=== PATIENT | male | born 1960 | race Caucasian/White ===

== ENCOUNTER 2022-03-19 16:05 | Emergency (ER) | payer SELFPAY ==
[2022-03-19 17:54] LABS: ESTIMATED GFR 69 mL/min (>60)
== END 2022-03-20 07:45 | disposition home or self-care (01) ==
LOC: JP.ED 16:05
DX: F10.920 Alcohol use, unspecified with intoxication, uncomplicated (principal); Y90.8 Blood alcohol level of 240 mg/100 ml or more
CPT/HCPCS: 36415; 70450; 80053; 80305-QW; 80307; 83605; 85025; 99284

== ENCOUNTER 2024-09-22 23:31 | Emergency (ER) | payer SELFPAY | END 2024-09-23 07:04 | disposition other institution (70) | LOC: JP.ED 23:31 | DX: S72.001A Fracture of unspecified part of neck of right femur, initial encounter for closed fracture (principal); Z79.899 Other long term (current) drug therapy; Z86.16 Personal history of COVID-19; W18.39XA Other fall on same level, initial encounter; Y93.89 Activity, other specified | CPT/HCPCS: 73502-26-RT; 73502-RT; 93005; 93010; 96374; 99283; 99285-25; J1171 ==

== ENCOUNTER 2025-03-01 01:39 | Inpatient (IN) | payer SELFPAY ==
[2025-03-01 02:00] LABS: BASOPHILS PERCENT AUTO 0.1 % (0.1-1.3); EOSINOPHILS PERCENT AUTO 0.0 % (0.0-5.4); IMMATURE GRAN ABSOLUTE AUTO 0.06 K/uL (0.00-0.23); IMMATURE GRAN PERCENT AUTO 0.4 % (0.0-0.7); LYMPHOCYTES ABSOLUTE AUTO 1.25 K/uL (0.8-3.3); LYMPHOCYTES PERCENT AUTO 8.2 % (11.4-47.7); MONOCYTES ABSOLUTE AUTO 1.70 K/uL (0.20-0.90); MONOCYTES PERCENT AUTO 11.1 % (3.3-12.6); NEUTROPHILS ABSOLUTE AUTO 12.26 K/uL (1.0-7.6); NEUTROPHILS PERCENT AUTO 80.2 % (40.0-78.1); PLATELET COUNT,PLT 303 K/uL (130-375); RED BLOOD CELL COUNT 4.60 M/uL (4.14-5.76); WHITE BLOOD CELL COUNT,WBC 15.3 K/uL (3.2-11.0)
[2025-03-01 02:02] LABS: BASOPHILS ABSOLUTE AUTO 0.02 K/uL (0.00-0.10); EOSINOPHILS ABSOLUTE AUTO 0.00 K/uL (0.00-0.40)
[2025-03-01] MEDS: LORazepam 2 MG/ML SDV IVPUSH SCH (02:02)
[2025-03-01 02:13] LABS: A/G RATIO 1.4 (1.2-2.2); ALANINE AMINOTRANSFERASE,ALT 70 U/L (12-78); ASPARTATE AMNIOTRANSFERASE,AST 99 U/L (15-37); BILIRUBIN TOTAL 0.8 mg/dL (0.2-1.0); BLOOD UREA NITROGEN,BUN 10 mg/dL (7-18); CARBON DIOXIDE,CO2 18 mmol/L (21-32); CHLORIDE,CL 94 mmol/L (100-108); CREATININE 1.3 mg/dL (0.8-1.3); EST CRCL DRUG DOSING (CG) 63.84 mL/min; ESTIMATED GFR 62 mL/min (>60); GLUCOSE RANDOM 122 mg/dL (74-106); POTASSIUM,K 3.4 mmol/L (3.6-5.2); PROTEIN TOTAL,TP 7.0 g/dL (6.4-8.2); SODIUM,NA 131 mmol/L (140-148)
[2025-03-01] MEDS: Ketorolac 30 MG/ML SDV IVPUSH ONE (02:54)
[2025-03-01 03:15] LABS: APPEARANCE,URINE CLEAR (CLEAR); GLUCOSE,URINE NEGATIVE (NEGATIVE); OCCULT BLOOD,URINE LARGE (NEGATIVE)
[2025-03-01 03:24] LABS: AMPHETAMINES SCREEN, URINE NEGATIVE (NEGATIVE); METHADONE SCREEN, URINE NEGATIVE (NEGATIVE); METHAMPHETAMINES SCREEN, URINE NEGATIVE (NEGATIVE); OXYCODONE SCREEN,URINE NEGATIVE (NEGATIVE); PROPOXYPHENE SCREEN,URINE NEGATIVE (NEGATIVE); SQUAMOUS EPITHELIAL CELLS,UR RARE /HPF; THC SCREEN,URINE 50 NG/ML PRESUMPTIVE POSITIVE (NEGATIVE); UROTHELIAL CELLS,URINE NOT SEEN /HPF
[2025-03-01] MEDS: LORazepam 2 MG/ML SDV IVPUSH PRN ×2 (03:25→04:11)
[2025-03-01 06:18] LABS: PHOSPHORUS 3.4 mg/dL (2.5-4.9)
[2025-03-01] MEDS ORDERED: MVI, Adult with Vitamin K 10 ML, Thiamine 100 MG, Folic Acid 1 MG, Magnesium Sulf 1 GM/... IV SCH (07:00)
[2025-03-01] MEDS: MVI, Adult with Vitamin K 10 ML, Thiamine 100 MG, Folic Acid 1 MG, Magnesium Sulf 1 GM/... IV ONE (07:42)
[2025-03-01] MEDS ORDERED: Magnesium Hydroxide 400 MG/5 ML Susp 30 ML Cup PO PRN (10:10)
[2025-03-01] MEDS ORDERED: Naloxone 0.4 MG/ML SDV IVPUSH PRN (10:10)
[2025-03-01] MEDS ORDERED: Sennosides/Docusate Sodium 50-8.6 MG Tab PO PRN (10:10)
[2025-03-01] MEDS ORDERED: Ondansetron 4 MG Tab.DIS PO PRN (10:10)
[2025-03-01] MEDS: Ondansetron 4 MG/2 ML SDV IV PRN (10:34)
[2025-03-01] MEDS: Magnesium Sulfate 2 GM/50 mL 2 GM in Premix Bag 1 BAG IV SCH (10:57)
[2025-03-01] MEDS: LORazepam 2 MG/ML SDV IV PRN (11:34)
[2025-03-01] MEDS: NS + KCl 20mEq/L 1,000 ML IV SCH (11:54)
[2025-03-01] MEDS ORDERED: PHENobarbital Sodium 65 MG/ML SDV IVPUSH PRN (15:43)
[2025-03-02 05:58] LABS: PLATELET COUNT,PLT 212.0 K/uL (130-375); RED BLOOD CELL COUNT 4.56 M/uL (4.14-5.76); WHITE BLOOD CELL COUNT,WBC 15.9 K/uL (3.2-11.0)
[2025-03-02 06:19] LABS: A/G RATIO 0.9 (1.2-2.2); ALANINE AMINOTRANSFERASE,ALT 50 U/L (12-78); ASPARTATE AMNIOTRANSFERASE,AST 55 U/L (15-37); BILIRUBIN TOTAL 0.8 mg/dL (0.2-1.0); BLOOD UREA NITROGEN,BUN 8 mg/dL (7-18); CARBON DIOXIDE,CO2 26 mmol/L (21-32); CHLORIDE,CL 101 mmol/L (100-108); CREATININE 0.9 mg/dL (0.8-1.3); EST CRCL DRUG DOSING (CG) 92.34 mL/min; ESTIMATED GFR 96 mL/min (>60); GLUCOSE RANDOM 96 mg/dL (74-106); POTASSIUM,K 3.5 mmol/L (3.6-5.2); PROTEIN TOTAL,TP 5.6 g/dL (6.4-8.2); SODIUM,NA 134 mmol/L (140-148)
[2025-03-03] MEDS: Simethicone 125 MG Tab.Chew PO PRN (03:50)
[2025-03-03 05:53] LABS: PLATELET COUNT,PLT 195.0 K/uL (130-375); RED BLOOD CELL COUNT 4.18 M/uL (4.14-5.76); WHITE BLOOD CELL COUNT,WBC 16.4 K/uL (3.2-11.0)
[2025-03-03 06:14] LABS: BLOOD UREA NITROGEN,BUN 8.0 mg/dL (7-18); CARBON DIOXIDE,CO2 28.0 mmol/L (21-32); CHLORIDE,CL 100.0 mmol/L (100-108); CREATININE 1.0 mg/dL (0.8-1.3); EST CRCL DRUG DOSING (CG) 83.1 mL/min; ESTIMATED GFR 85.0 mL/min (>60); GLUCOSE RANDOM 99.0 mg/dL (74-106); POTASSIUM,K 3.3 mmol/L (3.6-5.2); SODIUM,NA 135.0 mmol/L (140-148)
[2025-03-03] MEDS: Potassium Chloride 20 MEQ Tab.ER PO ONE (09:15)
[2025-03-04 04:16] LABS: PLATELET COUNT,PLT 214.0 K/uL (130-375); RED BLOOD CELL COUNT 4.04 M/uL (4.14-5.76); WHITE BLOOD CELL COUNT,WBC 16.0 K/uL (3.2-11.0)
[2025-03-04 04:32] LABS: A/G RATIO 0.8 (1.2-2.2); ALANINE AMINOTRANSFERASE,ALT 47 U/L (12-78); ASPARTATE AMNIOTRANSFERASE,AST 38 U/L (15-37); BILIRUBIN TOTAL 1.0 mg/dL (0.2-1.0); BLOOD UREA NITROGEN,BUN 7 mg/dL (7-18); CARBON DIOXIDE,CO2 29 mmol/L (21-32); CHLORIDE,CL 98 mmol/L (100-108); CREATININE 0.9 mg/dL (0.8-1.3); EST CRCL DRUG DOSING (CG) 92.34 mL/min; ESTIMATED GFR 96 mL/min (>60); GLUCOSE RANDOM 101 mg/dL (74-106); POTASSIUM,K 3.4 mmol/L (3.6-5.2); PROTEIN TOTAL,TP 6.3 g/dL (6.4-8.2); SODIUM,NA 134 mmol/L (140-148)
[2025-03-04] MEDS: Potassium Chloride 20 MEQ Tab.ER PO ONE (08:55)
== END 2025-03-04 09:22 | disposition home or self-care (01) | DRG 439 ==
LOC: JP.ED 01:39 → JP.ICU 08:57 → JP.MS 03-02 19:18
PROVIDERS: ADMIT Internal Medicine; ATTEND Internal Medicine
DX: K85.20 Alcohol induced acute pancreatitis without necrosis or infection (principal); F10.231 Alcohol dependence with withdrawal delirium; Y90.0 Blood alcohol level of less than 20 mg/100 ml; H54.7 Unspecified visual loss; M19.90 Unspecified osteoarthritis, unspecified site; G89.29 Other chronic pain; F32.A Depression, unspecified; Z96.649 Presence of unspecified artificial hip joint; E87.6 Hypokalemia; E83.42 Hypomagnesemia; Z87.442 Personal history of urinary calculi; Z87.81 Personal history of (healed) traumatic fracture; Z98.890 Other specified postprocedural states; Z87.891 Personal history of nicotine dependence
CPT/HCPCS: 36415; 71046; 71046-26; 74176; 80048; 80053; 80305-QW; 80307; 81001; 83605; 83690; 83735; 83880; 84100; 84484; 85025; 85027; 96361; 96365; 96374; 96375; 96376; 99223; 99233; 99238; 99285; 99285-25; A9270-GY; J1790; J1808; J1885; J2060; J2270; J2405; J2470; J2560; J3360; J3411; J3475; J3480; J7030